=== PATIENT | male | born 1995 | race Two or more races ===

== ENCOUNTER 2021-02-23 05:39 | Emergency (ER) | payer OTHER ==
[~2021-02-23] VITALS: Ht 177.8 cm; Wt 99.8 kg
[2021-02-23 05:48] VITALS: BP 168/85
[2021-02-23] MEDS ORDERED: KETOROLAC TROMETH 60MG/2ML VIAL IM ONE ×2 (06:45)
== END 2021-02-23 07:57 | disposition home or self-care (01) ==
LOC: EDSEX 05:39 → EDBD 05:39 → ER 05:39
DX: S42.022A Displaced fracture of shaft of left clavicle, initial encounter for closed fracture (principal); S60.222A Contusion of left hand, initial encounter; V49.9XXA Car occupant (driver) (passenger) injured in unspecified traffic accident, initial encounter; Y93.89 Activity, other specified; Y92.89 Other specified places as the place of occurrence of the external cause; Y99.8 Other external cause status
CPT/HCPCS: 73000; 73130; 96372; 99284; J1885